=== PATIENT | female | born 1975 | race Caucasian/White ===

== ENCOUNTER 2022-12-21 20:28 | Emergency (ER) | payer OTHER ==
[~2022-12-21] VITALS: Ht 162.6 cm; Wt 77.1 kg
[2022-12-21 21:31] VITALS: BP 142/75; PULSE 77; RESP 16; TEMP 98.5; O2SAT 100
[2022-12-21 21:44] VITALS: BP 158/92; PULSE 74; RESP 18; TEMP 98.2; O2SAT 100
[2022-12-21 22:10] VITALS: O2SAT 100
[2022-12-21] MEDS ORDERED: KETOROLAC 60 MG/2 ML VIAL IM ONE (22:25)
[2022-12-21] MEDS ORDERED: NAPR-54 PO (22:55)
== END 2022-12-21 23:00 | disposition home or self-care (01) ==
LOC: MED 20:28
DX: S33.9XXA Sprain of unspecified parts of lumbar spine and pelvis, initial encounter (principal); X58.XXXA Exposure to other specified factors, initial encounter; Y93.89 Activity, other specified; Y92.89 Other specified places as the place of occurrence of the external cause; Y99.8 Other external cause status
CPT/HCPCS: 81025; 96372; 99283; J1885